=== PATIENT | male | born 1990 | race African-American/Black ===

== ENCOUNTER 2023-04-05 02:29 | Emergency (ER) | payer OTHER, SELFPAY ==
--- NOTE | ~2023-04-05 | XR_ITS ---
Left ankle Technique: AP, oblique, and lateral views were obtained. Clinical History: Pain Findings: No acute fracture or dislocation is seen. Osseous alignment is anatomic. Ankle mortise and other visualized joint spaces are preserved. Soft tissues are otherwise unremarkable. Impression: Unremarkable left ankle. Reviewed, dictated and finalized at location . Impression: Unremarkable left ankle.
[2023-04-05 02:33] VITALS: BP 125/63; PULSE 70; RESP 20; TEMP 36.7; O2SAT 97
--- NOTE | 2023-04-05 02:50 | ED.LOWEXIN ---
HPI - Extremity Injury (Lower) General Chief Complaint: Extremity Injury, Lower Stated Complaint: ankle pain Time Seen by Provider: 04/05/23 02:40 History of Present Illness HPI Narrative: This is a 25-year-old male, who denies significant past medical history, presenting to the emergency department complaining of left foot and ankle pain. Patient states he was at work when an I-beam fell on the left foot. He complains of 7/10 pain described as sharp. He denies injury elsewhere, including head injury or loss of consciousness. Related Data Allergies Allergy/AdvReac Type Severity Reaction Status Date / Time No Known Allergies Allergy Verified 04/05/23 02:35 Review of Systems Review of Systems: CONSTITUTIONAL: Denies fever, chills, or sweats. CARDIOVASCULAR: Denies chest pain, palpitations, or edema. RESPIRATORY: Denies cough or dyspnea. GASTROINTESTINAL: Denies abdominal pain, nausea, vomiting, or diarrhea. GENITOURINARY: Denies dysuria or hematuria. SKIN: Denies rash or itching. MUSCULOSKELETAL: Left foot and ankle pain denies back pain, or myalgia. NEUROLOGIC: Denies headache, numbness, dizziness, or weakness. PSYCHIATRIC: Denies anxiety or depression. Exam Narrative: GENERAL: Well-developed, well-nourished, and in no acute distress. HEAD: Normocephalic, atraumatic. EYES: PERRLA and EOMI. CHEST: Clear to auscultation. No respiratory distress. No wheezes rales or rhonchi HEART: Regular rate and rhythm. No murmur heard. Normal peripheral pulses. ABDOMEN: Soft, nontender, nondistended, normal active bowel sounds. EXTREMITIES: Mild swelling noted to the medial aspect of the left foot. Mild tenderness to palpation to the lateral aspect of the left foot at the inferior aspect of the lateral malleolus. Range of motion of the left ankle intact, though limited by pain. Otherwise normal range of motion. No edema. SKIN: Warm, dry, no rash. NEURO: No focal deficits. Alert and oriented x3. PSYCH: Normal mood and affect. Course Course Emergency Course: 03:10 - My review of the patient's x-rays are not concerning for ankle or foot fracture or dislocation. I discussed these findings with the patient with recommendations for RICE therapy and NSAIDs for pain. Discussed return and emergency precautions including signs/symptoms of neurovascular compromise and septic arthritis. The patient voiced understanding and is comfortable with the plan. All questions answered to his satisfaction. Vital Signs Vital signs: Vital Signs Temperature 98.0 F 04/05/23 02:33 Pulse Rate 70 04/05/23 02:33 Respiratory Rate 20 04/05/23 02:33 Blood Pressure 125/63 04/05/23 02:33 Pulse Oximetry 97 04/05/23 02:33 Oxygen Delivery Room Air 04/05/23 02:33 Temperature 98.0 F 04/05/23 02:33 Pulse Rate 68 04/05/23 03:27 Respiratory Rate 15 04/05/23 03:27 Blood Pressure 122/70 04/05/23 03:27 Pulse Oximetry 98 04/05/23 03:27 Oxygen Delivery Room Air 04/05/23 02:33 MDM - Extremity Injury (Lower) MDM Narrative Medical decision making narrative: Plan: Imaging, pain control, reassess Differential Diagnosis Differential diagnosis: Likely ankle sprain and strain, fracture of toe, ankle fracture and other (Fracture of foot, contusion, other) Discharge Plan Discharge Clinical Impression: Acute pain of left foot Contusion of foot, left Qualifiers: Encounter type: initial encounter Qualified Code(s): S90.32XA - Contusion of left foot, initial encounter Patient Disposition: Home, Self-Care Condition: Stable Instructions: Antibiotic Form, Foot Contusion (ED) Additional Instructions: You were seen in the emergency department. X-rays of the foot and ankle were nonconcerning for fracture or dislocation. I recommend a gram of Tylenol every 8 hours for 1 to 2 days followed by a gram of Tylenol every 8 hours as needed for pain. If you develop blue or cold toes, severe pain with spreading redness and fev
[2023-04-05] MEDS: ACETAMINOPHEN 500 MG TABLET 1000 MG PO (03:18)
[2023-04-05 03:27] VITALS: BP 122/70; PULSE 68; RESP 15; O2SAT 98
== END 2023-04-05 03:28 | disposition home or self-care (01) ==
PROVIDERS: Emergency Provider Preventive Medicine Aerospace Medicine
DX: S90.32XA Contusion of left foot, initial encounter (principal); W20.8XXA Other cause of strike by thrown, projected or falling object, initial encounter
CPT/HCPCS: 73610; 73630; 99283; A9270